=== PATIENT | female | born 1965 | race Caucasian/White ===

== ENCOUNTER → 2016-11-03 | Outpatient (CLI) | payer OTHER ==
--- NOTE | 2016-11-03 11:20 | DI ---
FACIAL SERIES, 11/03/2016 10:14 AM : Clinical History: Pain in the cheek region. Previous Exam: None at this facility. 5 routine upright views are obtained. The facial bones are normal. There is no facial soft tissue swelling or periorbital emphysema. No fac ial soft tissue mass is present. The paranasal sinuses are normal. There are no intracranial calcific ations. Reading: Normal facial series.
[2016-11-03 11:25] LABS: HEMOGLOBIN 13.9 g/dL (12.0-16.0); MEAN CORPUSCULAR HEMOGLOBIN 28.1 PG (27-31); MEAN CORPUSCULAR HGB CONC 32.3 g/dL (33-37); MEAN PLATELET VOLUME 9.5 FL (7.4-12.2); RED BLOOD COUNT 4.95 10^6/uL (4.20-5.40); WHITE BLOOD COUNT 7.15 10^3/uL (4.8-10.8)
[2016-11-03 12:06] LABS: HEMOGLOBIN A1C 6.11 % (4.2-6.0); MEAN BLOOD GLUCOSE (CALC) 117.463 mg/dL
[2016-11-03 12:11] LABS: ASPARTATE AMINO TRANSFERASE 20 IU/L (8-39); BILIRUBIN,TOTAL 0.4 mg/dL (0.3-1.2); BLOOD UREA NITROGEN 16 mg/dL (7-22); BUN/CREATININE RATIO 26.66 (6-20); CALCIUM 9.2 mg/dL (8.7-10.7); CHLORIDE 104 meq/L (98-112); CREATININE 0.6 mg/dL (0.50-1.20); EST GLOMERULAR FILTRATION > 60 (>60 ml/min/1.73m(2)); GLUCOSE 122 mg/dL (78-110); HDL CHOLESTEROL 46 mg/dL (40-150); POTASSIUM 4.4 meq/L (3.8-5.2); SODIUM 138 meq/L (135-145); TOTAL PROTEIN 6.6 g/dL (6.1-8.0)
[2016-11-03 12:20] LABS: TRIGLYCERIDES 408 mg/dL (44-200)
== END ==
LOC: MOB RAD 10:16
PROVIDERS: ATTEND Student in an Organized Health Care Education/Training Program
DX: R51 Headache (principal); W00.0XXA Fall on same level due to ice and snow, initial encounter; E78.1 Pure hyperglyceridemia; E66.09 Other obesity due to excess calories; E55.9 Vitamin D deficiency, unspecified; F48.2 Pseudobulbar affect; L30.4 Erythema intertrigo; R73.03 Prediabetes; M77.8 Other enthesopathies, not elsewhere classified; F33.2 Major depressive disorder, recurrent severe without psychotic features; Z13.1 Encounter for screening for diabetes mellitus; Z13.220 Encounter for screening for lipoid disorders
CPT/HCPCS: 36415; 70140; 80053; 80061; 82306; 83036; 84443; 85027; 99214; G0463

== ENCOUNTER → 2016-11-08 | Outpatient (CLI) | payer OTHER | LOC: MOB LAB 17:19 | PROVIDERS: ATTEND Physician Assistant | DX: R30.0 Dysuria (principal); R82.99 Other abnormal findings in urine | CPT/HCPCS: 87088 ==

== ENCOUNTER → 2017-04-25 | Outpatient (CLI) | payer OTHER ==
[2017-04-25 16:47] LABS: BLOOD UREA NITROGEN 11 mg/dL (7-22); BUN/CREATININE RATIO 15.71 (6-20); CALCIUM 9.1 mg/dL (8.7-10.7); EST GLOMERULAR FILTRATION > 60 (>60 ml/min/1.73m(2))
== END ==
LOC: MOB LAB 14:52
PROVIDERS: ATTEND Physician Assistant Medical
DX: I10 Essential (primary) hypertension (principal); R10.84 Generalized abdominal pain; N30.01 Acute cystitis with hematuria; R82.99 Other abnormal findings in urine
CPT/HCPCS: 36415; 80048; 81002; 87077; 87088; 87186 ×2; 99213; G0463

== ENCOUNTER → 2017-05-05 | Outpatient (CLI) | payer OTHER ==
[2017-05-05 16:13] LABS: BILIRUBIN,URINE NEGATIVE (NEG); CLARITY,URINE CLEAR (CLEAR); COLOR,URINE YELLOW; GLUCOSE, URINE (UA) NEGATIVE (NEG); NITRATE,URINE NEGATIVE (NEG); OCCULT BLOOD,URINE NEGATIVE (NEG); PH,URINE 5.5 (5.0-8.5); PROTEIN,URINE NEGATIVE (NEG); UROBILINOGEN,URINE 0.2 mg/dL (0.2)
[2017-05-05 16:25] LABS: RBC,URINE 0-3 /hpf; SQUAMOUS EPITHELIAL CELL,UR RARE; URINE SAMPLE TYPE CLEAN CATCH URINE
== END ==
LOC: MOB LAB 15:09
PROVIDERS: ATTEND Student in an Organized Health Care Education/Training Program
DX: R30.0 Dysuria (principal)
CPT/HCPCS: 81001

== ENCOUNTER → 2017-05-19 | Outpatient (CLI) | payer OTHER | LOC: MMPC 09:00 | PROVIDERS: ATTEND Student in an Organized Health Care Education/Training Program | DX: I10 Essential (primary) hypertension (principal); G35 Multiple sclerosis; R39.15 Urgency of urination | CPT/HCPCS: 99213; G0463 ==

== ENCOUNTER 2019-05-10 16:44 | Inpatient (IN) ==
[2019-05-10] MEDS ORDERED: HYDROmorphone 2 MG/1 ML IVP ONE (17:17)
[2019-05-10] MEDS ORDERED: ONDANSETRON 4 MG/2 ML VIAL IVP ONE ×2 (17:17→19:38)
[2019-05-10] MEDS ORDERED: Sodium Chloride 0.9% 1,000 ML PRIMARY IV ONE (17:17)
--- NOTE | 2019-05-10 17:22 | EKG ---
[address] [address] Measurements Intervals [place] Rate: 100 P: 47 VT: 148 QRS: 64 QRSD: 76 T: 57 QT: 365 QTc: 422 Interpretive Statements SINUS TACHYCARDIA ABNORMAL RHYTHM ECG Compared to ECG 10/02/2015 15:19:16 Sinus rhythm no longer present Electronically Signed On 05-10-19 19:30:21 MDT by Isaiah Joyner [email or web address]
[2019-05-10 17:32] LABS: VENOUS PH 7.35 (7.32-7.42)
[2019-05-10 17:34] LABS: BASOPHILS # (AUTO) 0.02 10*3/UL; BASOPHILS % (AUTO) 0.2 % (0-1); EOSINOPHILS # (AUTO) 0.16 10*3/UL; EOSINOPHILS % (AUTO) 1.5 % (0-8); Hematocrit [HCT] 38.3 % (37.0-47.0); Hemoglobin [HGB] 12.6 g/dL (12.0-16.0); LYMPHOCYTES # (AUTO) 1.32 10*3/uL; MEAN CORPUSCULAR HGB CONC 32.9 g/dL (33-37); MEAN CORPUSCULAR VOLUME 89.1 FL (81-99); MEAN PLATELET VOLUME 9.8 FL (7.4-12.2); MONOCYTES % (AUTO) 8.6 % (5-15); NEUTROPHILS # (AUTO) 7.98 10*3/UL; NEUTROPHILS % (AUTO) 76.7 % (50-80)
[2019-05-10 17:43] LABS: PLATELET MORPHOLOGY COMMENT NORMAL MORPHOLOGY (NORM); RBC MORPHOLOGY COMMENT NORMAL MORPHOLOGY (NORM); WBC MORPHOLOGY COMMENT NORMAL MORPHOLOGY (NORM)
[2019-05-10 17:48] LABS: BUN/CREATININE RATIO 17.77 (6-20); SERUM ALBUMIN 4.3 g/dL (3.5-4.8)
[2019-05-10 18:09] LABS: BILIRUBIN,URINE MODERATE (NEG); CLARITY,URINE Slightly Cloudy (CLEAR); COLOR,URINE YELLOW (Y); GLUCOSE, URINE (UA) NEGATIVE (NEG); OCCULT BLOOD,URINE NEGATIVE (NEG); PROTEIN,URINE TRACE mg/dl (NEG); UROBILINOGEN,URINE 0.2 EU/dL (0.2)
[2019-05-10 18:10] LABS: URINE SAMPLE TYPE CLEAN CATCH URINE
--- NOTE | 2019-05-10 18:55 | DI ---
History: ITS.REASON posterior back pain Physician Notes: use same bolus of contrast as used for ct abdomen.Tech Comments: Exam: CT CHEST Without Contrast Comparison: FINDINGS: Thoracic aorta appears within limits on noncontrast imaging. Proximal LAD and diagonal coronary artery calcification. No pericardial or pleural effusion. The central airways are patent without focal consolidation. Sequela of previous granulomatous disease with small calcified granulomas. No evidence of fracture or malalignment. Flowing anterior osteophyte formation. Suggestion of a few low-density foci within the thyroid measuring around 1.6 cm for example axial 4. May follow-up with nonemergent thyroid ultrasound as warranted. IMPRESSION: Thoracic aorta appears within limits on noncontrast imaging. Proximal LAD and diagonal coronary artery calcification. No pericardial or pleural effusion. Suggestion of a few low-density foci within the thyroid measuring around 1.6 cm for example axial 4. May follow-up with nonemergent thyroid ultrasound as warranted.
--- NOTE | 2019-05-10 19:04 | DI ---
History: ITS.REASON abdominal pain Physician Notes: use same bolus of contract as for CTA chest; get L.Tech Comments: Exam: CT ABDOMEN + PELVIS Without Contrast Comparison: 06/30/2018 FINDINGS: Bowel postsurgical changes and cholecystectomy again noted. No bowel dilation, free air or free fluid. The bladder is collapsed. No renal stones or hydronephrosis or evidence of ureteral or bladder stone. 1 cm exophytic left interpolar renal lesion may represent complex cyst or solid lesion and is not significantly changed. Other abdominal solid organs and abdominal aorta appear within limits on noncontrast imaging. No fracture or malalignment. IMPRESSION: No evidence of acute process on noncontrast imaging. Bowel postsurgical changes and cholecystectomy again noted. 1 cm exophytic left interpolar renal lesion may represent complex cyst or solid lesion and is not significantly changed.
[2019-05-10] MEDS ORDERED: DICYCLOMINE 20 MG TABLET PO PRN (20:54)
[2019-05-10] MEDS ORDERED: Magnesium Sulfate 2gm (Premix) 2 GM/50 ML BAG IV ONE (20:54)
[2019-05-10] MEDS ORDERED: VENLAFAXINE HCL XR 150 MG CAP PO SCH (20:54)
[2019-05-10] MEDS ORDERED: LIDOCAINE W/ SODIUM BICARB 0.5 ML SYR SUBD PRN (20:54)
[2019-05-10] MEDS ORDERED: ONDANSETRON 4 MG/2 ML VIAL IV PRN (20:54)
--- NOTE | 2019-05-10 20:54 | PDOC ---
HPI - History of Present Illness History of Present Illness: This very nice 53-year-old female who comes in with vague symptoms of generalized malaise and some mild diarrhea over the last 2 or 3 days she also has left upper quadrant pain. CT scans of the chest and abdomen revealed no acute abnormality. He was found to be hypotensive was treated with IV fluids and admitted for further treatment also she was found to have some renal insufficiency as well. She just stopped her antiseizure medication which was managed by Dr. Wakefield since she has not had a seizure in 5 years and that was of Vimpat and Neurontin she stopped this 3 weeks ago she was also on multiple high blood pressure meds per shows a note which wants Past Medical History Medical History: 1. MS relapsing remitting since was on Gilynia. This was discontinued in April as she had embolism she said to the left eye and apparently this is one of the side effects. 2. Epilepsy. 3. Depression and anxiety. 4. Bladder incontinence. 5. Hypertension. 6. Prolonged QT interval. This seems to be resolved. Surgical History: 1. History of gastric bypass. 2. Hysterectomy. 3. Appendectomy. 4. History of gallbladder surgery. 5. Colostomy with subsequent reversal for bowel injury during hysterectomy. 6. Incisional herniorrhaphy Family History: Reviewed an Not Pertinent Pertinent Family History: No history of depression or premature coronary artery disease. Past Social History: Does not smoke or drink. Tobacco Use: Never Smoker In the Past 12 Months, Have Used or Abuse Any of the Following Substance: None Medication / Allergies Home Medications: Home Medications Medication Instructions Recorded Confirmed Clonazepam [Klonopin] 2 mg PO DAILY 06/27/15 05/10/19 venlafaxine ER 150 mg 150 mg PO ONCE 11/16/17 05/10/19 capsule,extended release 24 hr baclofen 10 mg tablet 20 mg PO QHS tab 02/08/18 05/10/19 cetirizine 10 mg tablet 10 mg PO QDAY 09/21/18 05/10/19 multivitamin-ferrous 1 tab PO QAM 09/21/18 05/10/19 fumarate-folic acid 18 mg-400 mcg tablet vitamin B complex tablet 1 tab PO QDAY 09/21/18 05/10/19 lurasidone 40 mg tablet 40 mg PO QDAY #30 tab 09/28/18 05/10/19 cholecalciferol (vitamin D3) 1,000 1,000 unit PO QDAY 12/21/18 05/10/19 unit capsule lactobacillus combination no.9 4 4,000 mmu cells PO QDAY 12/21/18 05/10/19 billion cell capsule cyclobenzaprine 10 mg tablet 10 mg PO TID PRN #30 tab 02/01/19 05/10/19 pantoprazole 20 mg tablet,delayed 20 mg PO BID #180 tab 02/26/19 05/10/19 release metformin ER 1,000 mg 1,000 mg PO BID #180 tab 02/28/19 05/10/19 tablet,extended release 24hr blood sugar diagnostic strips See Dose Instructions .ROUTE 03/26/19 04/17/19 .MEDSUPPLY #25 ea mirabegron ER 50 mg 50 mg PO QDAY 04/17/19 05/10/19 tablet,extended release 24 hr tamsulosin 0.4 mg capsule 0.4 mg PO QDAY 04/17/19 05/10/19 Dicyclomine HCl [Bentyl] 1 tab PO PRN PRN 05/10/19 05/10/19 chlorthalidone 25 mg tablet 12.5 mg PO QDAY #30 tab 05/10/19 05/10/19 Allergies/Adverse Reactions: Allergies Allergy/AdvReac Type Severity Reaction Status Date / Time meperidine HCl [From Demerol] Allergy Mild NOT Verified 05/10/19 17:15 APPLICABLE morphine [Morphine] Allergy Mild ITCHING Verified 05/10/19 17:15 aspertame AdvReac DIZZINESS Uncoded 05/10/19 17:15 Review of Systems - Review of Systems All Systems: Reviewed & No Additional Complaints Except as Stated - Respiratory Respiratory: DENIES: Negative System Review, Cough, Sputum, Dyspnea At Rest, Dy spnea with Exertion, Pleuritic Pain, Hemoptysis, Wheezing, Other, See HPI - Cardiovascular Cardiovascular: DENIES: Negative System Review, Chest Pain, Edema, Syncope, Palpitations, Orthopnea, Paroxysmal Nocturnal Dyspnea, Other, See HPI - Gastrointestinal Gastrointestinal / Abdominal: REPORTS: Nausea, Diarrhea. DENIES: Bloody Stool Exam - Vitals Vital Signs: Vital Signs Temperature 96.9 F Temperature Source Temporal Artery Scan Pulse Rate [Pulse Oximeter] 102 Pulse Rate [Standing] 112 Pulse Rate [Sitting] 104 Pulse Rate [Lying] 102 Respiratory Rate 20 Blood Pressure [Standing] 88/57 Blood Pressure [Sitting] 97/59 Blood Pressure [Lying] 85/56 Blood Pressure [Left Arm] 84/54 Pulse Ox 93 Oxygen Delivery Method Room Air Height 5 ft 4 in Weight 200 lb - General General Appearance: No Acute Distress, Cooperative - Head Head Exam: Normal Inspection, Normocephalic, Atraumatic - Eye Eye Exam: POSITIVE: Normal Appearance, PERRL, EOMI, No Scleral Icterus - ENT ENT Exam: POSITIVE: Normal Exam, Normal External Ear Exam, Normal Oropharynx, TM's Normal Bilaterally, Mucous Membranes Moist - Respiratory Respiratory Exam: POSITIVE: Clear to Auscultation - Bilaterally, Breathing Non Labored, Normal To Percussion, Normal to Percussion and Palpation - Cardiovascular Cardiovascular Exam: POSITIVE: RRR, No Murmur, No Clicks, No Gallops, No Rubs, PMI Non-Displaced - GI/Abdominal Additional GI/Abdominal Exam Details: Mild left lower car to abdominal pain no guarding or rebound - Extremities Extremities Exam: POSITIVE: No Clubbing Present, No Edema Present Results - Labs CBC and BMP: 05/10/19 17:20 05/10/19 17:20 Assessment and Plan - Patient Problems (1) DUSTIN (acute kidney injury) Current Visit: Yes Status: Acute Code(s): N17.9 - Acute kidney failure, unspecified (2) Hypertension Current Visit: No Status: Chronic Code(s): I10 - Essential (primary) hypert ension - Assessment / Plan Additional Assessment/Plan Details: #1 hypotension this could be from dehydration or viral gastroenteritis and having the diuretics and hypertensive medication on board this could again with the hypotension and also acute kidney injury we'll admit the patient check ultrasound of her kidneys make sure there is no blockage hold medication that can insult the kidneys and hydrate the patient would like to bring her at 125 an hour. #2 hypomagnesemia replace with 2 g IV we'll recheck and she might need more. Repeat labs in a.m.
[2019-05-10] MEDS ORDERED: ClonazePAM Tab 1 MG TABLET PO SCH ×2 (21:00)
[2019-05-10] MEDS ORDERED: Lactated Ringers 1,000 ML PRIMARY IV SCH (21:00)
[2019-05-10] MEDS ORDERED: PANTOPRAZOLE 20 MG TABLET.DR PO SCH (21:00)
[2019-05-10] MEDS: HEPARIN 5000 UNIT/1 ML SUBCUT SCH (21:21)
[2019-05-10] MEDS: Lactated Ringers 1,000 ML PRIMARY IV SCH (21:22)
[2019-05-10] MEDS: HYDROmorphone 2 MG/1 ML IV PRN (21:28)
[2019-05-10 21:49] VITALS: TEMP 97.7
[2019-05-10] MEDS ORDERED: methylPREDNISolone 125 MG/2 ML VIAL IVP ONE (23:08)
[2019-05-10] MEDS ORDERED: diphenhydrAMINE 50 MG/1 ML VIAL IVP ONE (23:08)
--- NOTE | 2019-05-11 00:46 | PDOC ---
General Adult HPI - General Chief Complaint: Abdomen Pain Stated Complaint: BACK SPASMS, ABD PAIN, LOW BP Date Seen by Provider: 05/10/19 Time Seen by Provider: 17:05 Source: POSITIVE: Patient Exam Limitations: POSITIVE: No limitations Nurse's Notes Reviewed & Considered: Yes - History of Present Illness Initial Comment: The patient is a 53-year-old female. Patient states that for the past 2-3 days she has "just not felt good ". She states she's felt "weak and sweaty". She states she had her blood pressure taken at her eye physician's office today and was told that her "blood pressure was low. Patient complains of some vague abdominal and back discomfort; patient states that she has a history of "Augustine spasms "for which she is being treated in physical therapy. Patient has a history of hypertension for which she takes benazepril 40 mg twice daily and chlorthalidone, 25 mg daily. History of diabetes mellitus for which she takes metformin 1000 mg twice daily. She also takes Klonopin 2 mg twice daily and baclofen 20 mg daily. She occasionally takes Flexeril 10 mg as necessary. No fevers or chills. No head pain. No vomiting, diarrhea, melena, hematochezia, hematemesis, dysuria or hematuria. Patient had a gastric bypass in 2005 and lost 40 pounds. She's had a cholecystectomy, appendectomy and hysterectomy. Patient states that she has felt "dizzy and lightheaded. Have you received a tetanus shot in the past 10 years?: Unknown Body Location Affected: REPORTS: Abdomen, Back, Other (As above) Timing: REPORTS: Gradual, Getting Worse Duration: >24 hours Severity: Moderate Quality: REPORTS: "Pain" (Abdomen and posterior thorax) Context: REPORTS: None Modifying Factors: improves with: Upright Position (Dizziness and lightheadedness somewhat exacerbated by standing) Similar Symptoms Previously: Yes (history of chronic back and abdominal "cramping") Recent Care Received: REPORTS: Recently Seen (Seen by her director of maternity services earlier today), Treated by MD (As above) Any Prior Injuries Related to Current Complaint?: No - Patient Home Medications Home Medications: Home Medications Clonazepam [Klonopin] 2 mg PO DAILY 06/27/15 venlafaxine ER 150 mg capsule,extended release 24 hr 150 mg PO ONCE 11/16/17 baclofen 10 mg tablet 20 mg PO QHS tab 02/08/18 cetirizine 10 mg tablet 10 mg PO QDAY 09/21/18 multivitamin-ferrous fumarate-folic acid 18 mg-400 mcg tablet 1 tab PO QAM 09/21/18 vitamin B complex tablet 1 tab PO QDAY 09/21/18 lurasidone 40 mg tablet 40 mg PO QDAY #30 tab 09/28/18 cholecalciferol (vitamin D3) 1,000 unit capsule 1,000 unit PO QDAY 12/21/18 lactobacillus combination no.9 4 billion cell capsule 4,000 mmu cells PO QDAY 12/21/18 cyclobenzaprine 10 mg tablet 10 mg PO TID PRN #30 tab 02/01/19 pantoprazole 20 mg tablet,delayed release 20 mg PO BID #180 tab 02/26/19 metformin ER 1,000 mg tablet,extended release 24hr 1,000 mg PO BID #180 tab 02/28/19 blood sugar diagnostic strips See Dose Instructions .ROUTE .MEDSUPPLY #25 ea 03/26/19 mirabegron ER 50 mg tablet,extended release 24 hr 50 mg PO QDAY 04/17/19 tamsulosin 0.4 mg capsule 0.4 mg PO QDAY 04/17/19 Dicyclomine HCl [Bentyl] 1 tab PO PRN PRN 05/10/19 chlorthalidone 25 mg tablet 12.5 mg PO QDAY #30 tab 05/10/19 - Patient Allergies Allergies/Adverse Reactions: Allergies Allergy/AdvReac Type Severity Reaction Status Date / Time meperidine HCl [From Demerol] Allergy Mild NOT Verified 05/10/19 17:15 APPLICABLE morphine [Morphine] Allergy Mild ITCHING Verified 05/10/19 17:15 aspertame AdvReac DIZZINESS Uncoded 05/10/19 17:15 Past Medical History - heen HEENT History: Other (please comment) Additional HEENT History: Left BLURRED VISION L EYE SECONDARY TO MS macular edema from MS meds. Cardiovascular History: Hypertension, Hyperlipidemia Additional Cardiovasular History: PROLONGED QT SYNDROME Respiratory History: Pulmonary Embolism, Other (please comment) Additional Respiratory History: RESPIRATORY FAILURE 06/27/13 d/t fentanyl patch and pain meds Gastrointestinal History: GERD, Irritable Bowel Syndrome, Other (please comment) Additional Gastrointestinal History: GASTRIC BYPASS, COLOSTOMY 07/04, COLOSTOMY REVERSAL 11/05 Genitourinary History: Denies History Endocrine History: Denies History Musculoskeletal History: Other (please comment) Prosthesis or Implant: No Additional Musculoskeletal History: RESTLESS LEG SYNDROME Neurological History: Seizures, Migraines, Multiple Sclerosis, Other (please comment) Additional Neurological History: Epilepsy Blood Disorders: Denies History Psychiatric History: Depression, Anxiety Disorders, Other (please comment) Additional Psychiatric History: PSEUDOBULBAR AFFECT-taken off meds for this History of Sexually Transmitted Diseases: No Female Reproductive History: Denies History Obstetrical History: Denies History Cancer History: Denies History In Past Year Been Physically Harmed or Verbally Threatened: No History of MDRO: No History of Other Communicable Diseases: No Tobacco Use: Never Smoker Alcohol Use: Other In the Past 12 Months, Have Used or Abuse Any Substance: None Previous Surgical History: Yes Type / Date of Surgery: REGLA, GASTRIC BYPASS, FULL HYSTERECTOMY,COLOSTOMY, COLOSTOMY REVERSAL, COLOVAGINAL FISTULA REPAIR, APPY/2 separate hernia Anesthesia Reactions: No Malignant Hyperthermia: No Significant Family History: Diabetes, Hypertension Past Medical History Reviewed: Reviewed - No Changes ROS - Limitations ROS Limitations: No Limitations Constitution: REPORTS: Weakness Cardiovascular: REPORTS: Denies Cardiac Symptoms Respiratory: REPORTS: Denies Resp Symptoms Neurological: REPORTS: Dizziness, Weakness Gastrointestinal: REPORTS: Abdominal Pain Endocrine: REPORTS: Fatigue Musculoskeletal: REPORTS: Back Pain (Posterior thoracic pain and "cramping") Genitourinary: REPORTS: Denies Symptoms Eyes: REPORTS: Denies Symptoms ENT: REPORTS: Denies Symptoms Skin: REPORTS: Denies Skin Symptoms Lympathic: REPORTS: Denies Lympathic Symptoms Immunologic: POSITIVE: Denies Symptoms Psychiatric: POSITIVE: Denies Psych Symptoms General Adult Exam - General Appearance General Appearance: POSITIVE: Alert, Cooperative, No Acute Distress, No Evidence of Trauma - HEENT HEENT: POSITIVE: Head Inspection Nml, Eyes Inspection Nml, Ears Inspection Nml, Nose Inspection Nml, Oral/Dental Inspect. Nml, Pharynx Inspect. Nml, PERRL, EOMI - Pupils Pupil Size: 3 mm: Bilateral (PERRLA) - Neck Neck: POSITIVE: Normal Inspection, Thyroid Normal - Respiratory Respiratory: POSITIVE: No Respiratory Distress, Breath Sounds Normal, Chest Non- Tender - Cardiovascular Cardiovascular: POSITIVE: Regular Rate & Rhythm, No Murmur, No Gallop, PMI Normal Peripheral Pulses: Radial (R): 2+, Radial (L): 2+ - Abdomen Abdomen: Soft: (All Quadrants), Normal Bowel Sounds: (All Quadrants), No Splenomegaly: (All Quadrants), No Hepatomegaly: (All Quadrants), No Guarding: (All Quadrants), No Rebound: (All Quadrants), No Palpable Pulse: (All Quadrants), No Palpabale Mass: (All Quadrants), No Distention: (All Quadrants), No Rigidity: (All Quadrants), Tenderness Noted: (RUQ), (LUQ), (RLQ), (LLQ) Additional Abdominal Details: Abdominal examination shows bowel sounds to be active. Patient does express some mild discomfort on direct palpation over the paraumbilical area, without masses, organomegaly or rebound. 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 General Adult Progress - Results Reviewed by me Xrays/CTs/US Reviewed by me: Yes Discussed with Radiologist: Yes Radiology Findings: CT scan abdomen, pelvis and chest without contrast read by radiologist as normal. Lab Results Reviewed by Me: Yes (BUN 32, creatinine 1.8, lactic acid 3.1, CRP 2.6) Lab Results:: Laboratory Results 05/10/19 05/10/19 05/10/19 17:17 17:20 17:20 WBC 10.41 RBC 4.30 Hgb 12.6 Hct 38.3 MCV 89.1 MCH 29.3 MCHC 32.9 L RDW Std Deviation 45.7 RDW Coeff of Kvng 14.3 Plt Count 368 H MPV 9.8 Immature Gran % (Auto) 0.3 Neut % (Auto) 76.7 Lymph % (Auto) 12.7 [place] % (Auto) 8.6 Eos % (Auto) 1.5 Baso % (Auto) 0.2 Immature Gran # (Auto) 0.03 Neut # (Auto) 7.98 Lymph # (Auto) 1.32 [place] # (Auto) 0.90 H Eos # (Auto) 0.16 Baso # (Auto) 0.02 WBC Morphology Comment Normal morphology Plt Morphology Comment Normal morphology RBC Morph Comment Normal morphology D-Dimer VBG pH VBG pCO2 VBG HCO3 VBG Base Excess Sodium 142 Potassium 4.1 Chloride 107 Carbon Dioxide 19 L Anion Gap 16 BUN 32 H Creatinine 1.8 H Estimated GFR 29 BUN/Creatinine Ratio 17.77 Glucose 103 Calculated Osmolality 300.0 H Lactic Acid Calcium 9.1 Magnesium 1.3 L Total Bilirubin 0.2 L AST 33 ALT 39 Alkaline Phosphatase 87 Total Creatine Kinase 31 Troponin I C-Reactive Protein 2.6 H NT-Pro-B Natriuret Pep 154 H Total Protein 7.2 Albumin 4.3 Globulin 2.9 Albumin/Globulin Ratio 1.40 TSH Ur Collection Type Clean catch urine Urine Color Yellow Urine Clarity Slightly cloudy Urine pH 5.0 Ur Specific [place] 1.025 Urine Protein Trace Urine Glucose (UA) Negative Urine Ketones 15 Urine Occult Blood Negative Urine Nitrate Negative Urine Bilirubin Moderate Urine Urobilinogen 0.2 Ur Leukocyte Esterase Negative Ur Culture Indicated? Culture not set 05/10/19 05/10/19 05/10/19 17:20 17:20 17:20 WBC RBC Hgb Hct MCV MCH MCHC RDW Std Deviation RDW Coeff of Kvng Plt Count MPV Immature Gran % (Auto) Neut % (Auto) Lymph % (Auto) [place] % (Auto) Eos % (Auto) Baso % (Auto) Immature Gran # (Auto) Neut # (Auto) Lymph # (Auto) [place] # (Auto) Eos # (Auto) Baso # (Auto) WBC Morphology Comment Plt Morphology Comment RBC Morph Comment D-Dimer 383 VBG pH VBG pCO2 VBG HCO3 VBG Base Excess Sodium Potassium Chloride Carbon Dioxide Anion Gap BUN Creatinine Estimated GFR BUN/Creatinine Ratio Glucose Calculated Osmolality Lactic Acid 3.1 H Calcium Magnesium Total Bilirubin AST ALT Alkaline Phosphatase Total Creatine Kinase Troponin I < 0.012 C-Reactive Protein NT-Pro-B Natriuret Pep Total Protein Albumin Globulin Albumin/Globulin Ratio TSH Ur Collection Type Urine Color Urine Clarity Urine pH Ur Specific [place] Urine Protein Urine Glucose (UA) Urine Ketones Urine Occult Blood Urine Nitrate Urine Bilirubin Urine Urobilinogen Ur Leukocyte Esterase Ur Culture Indicated? 05/10/19 05/10/19 17:20 17:28 WBC RBC Hgb Hct MCV MCH MCHC RDW Std Deviation RDW Coeff of Kvng Plt Count MPV Immature Gran % (Auto) Neut % (Auto) Lymph % (Auto) [place] % (Auto) Eos % (Auto) Baso % (Auto) Immature Gran # (Auto) Neut # (Auto) Lymph # (Auto) [place] # (Auto) Eos # (Auto) Baso # (Auto) WBC Morphology Comment Plt Morphology Comment RBC Morph Comment D-Dimer VBG pH 7.35 VBG pCO2 33 L VBG HCO3 18 L VBG Base Excess -7 L Sodium Potassium Chloride Carbon Dioxide Anion Gap BUN Creatinine Estimated GFR BUN/Creatinine Ratio Glucose Calculated Osmolality Lactic Acid Calcium Magnesium Total Bilirubin AST ALT Alkaline Phosphatase Total Creatine Kinase Troponin I C-Reactive Protein NT-Pro-B Natriuret Pep Total Protein Albumin Globulin Albumin/Globulin Ratio TSH 1.36 Ur Collection Type Urine Color Urine Clarity Urine pH Ur Specific [place] Urine Protein Urine Glucose (UA) Urine Ketones Urine Occult Blood Urine Nitrate Urine Bilirubin Urine Urobilinogen Ur Leukocyte Esterase Ur Culture Indicated? CBC and BMP: 05/10/19 17:20 05/10/19 17:20 EKG Interpreted/Reviewed By Me:: Yes (sinus tachycardia of 100/m) EKG Interpretation:: POSITIVE: Normal Sinus Rhythm, Normal Intervals, Normal [place], Normal QRS, Normal ST/T. NEGATIVE: Normal Rate (Sinus tachycardia of 100/m) - Patient's Progress Pain Medication Addressed: POSITIVE: Yes (Patient given Dilaudid, 1 mg IV) School/Work Release Addressed: POSITIVE: Not Applicable Re-Examine Time: 19:00 Re-Examine Comment: Orthostatic blood pressure shortly after arrival was 85/56 supine with a pulse of 102 and upright was 88/52 with a pulse of 112. Patient stated that she felt "dizzy and lightheaded "was standing. Patient's BUN was 32 and creatinine is 1.8; on 12/25/2018 BUN was 19 and creatinine was 0.9. Patient was hydrated with a liter of normal saline and after this her blood pressure was 117/78 and her heart rate 99. Patient was advised of the noncontrast CT results of her abdomen and pelvis and chest. Patient advised th at I believe her low blood pressures most likely due to her antihypertensives, chlorthalidone and benazepril, which are likely also causing a increase in her renal functions. Case was discussed with hospitalist quality control head, Dr. Peraza, who has admitted the patient for further evaluation and treatment. Status: POSITIVE: Improved, Re-Examined Antibiotics Given: No - Consult Consult (If Yes, Name of Consulting MD & Time Called): Yes (, hospitalist, 1919 ) Consulting MD will see pt:: POSITIVE: [facility] ED, [facility] Admit Counseled: POSITIVE: Patient, RE: Lab Results, RE: Radiology Results, RE: DX, RE: Need for F/U Patient Care Time - Estimated PCT Patient Care Time (In Minutes): 60 Vital Signs - Recent Vital Signs Vital Signs: Vital Signs (Last 8 hours) Temp Pulse Pulse Pulse Pulse Resp BP 05/10/19 17:47 102 H 104 H 112 H 05/10/19 16:44 96.9 F 102 H 20 84/54 BP BP BP Pulse Ox 05/10/19 17:47 85/56 97/59 88/57 05/10/19 16:44 93 - VS Reviewed Vital Signs Reviewed: Yes Discharge Clinical Impression: Abdominal pain, Hypotension, Renal failure, Multiple sclerosis Back pain Qualifiers: Back pain location: thoracic back pain Chronicity: unspecified Back pain laterality: right Qualified Code(s): M54.6 - Pain in thoracic spine Discharge Disposition: Admit to Inpatient Condition: Good Patient Problem(s) Reviewed: Yes Date Decision to Admit to Inpatient: 05/10/19 Time Decision to Admit to Inpatient: 19:00
--- NOTE | 2019-05-11 00:54 | DI ---
EXAM: US Retroperitoneal Limited, Renal CLINICAL HISTORY: ITS.REASON acute renal failure Physician Notes: Tech Comments: TECHNIQUE: Real-time ultrasound of the retroperitoneum (limited) with image documentation. COMPARISON: CT 05/10/19 FINDINGS: Right kidney: The right kidney is normal in size. No hydronephrosis or nephrolithiasis no renal masses. Left kidney: The left kidney is normal in size. No hydronephrosis or nephrolithiasis. Small exophytic isoechoic to hypoechoic lesion in the upper left kidney measuring 1 cm without internal vascularity is nonspecific but unchanged when compared to 06/30/18. Findings probably represent a hemorrhagic or proteinaceous cyst. Bladder: Normal bladder. No intraluminal mass or bladder wall thickening. Both ureteral jets are identified. IMPRESSION: Small exophytic isoechoic to hypoechoic lesion in the upper left kidney measuring 1 cm without internal vascularity is nonspecific but unchanged when compared to 06/30/18. Findings probably represent a hemorrhagic or proteinaceous cyst. However, consider follow-up ultrasound in 6 months to demonstrate interval stability.
[2019-05-11] MEDS: HYDROmorphone 2 MG/1 ML IV PRN (04:05)
[2019-05-11 04:39] LABS: BASOPHILS # (AUTO) 0.01 10*3/UL; BASOPHILS % (AUTO) 0.1 % (0-1); EOSINOPHILS # (AUTO) 0.02 10*3/UL; EOSINOPHILS % (AUTO) 0.2 % (0-8); Hematocrit [HCT] 37.5 % (37.0-47.0); Hemoglobin [HGB] 12.1 g/dL (12.0-16.0); LYMPHOCYTES # (AUTO) 0.69 10*3/uL; MEAN CORPUSCULAR HGB CONC 32.3 g/dL (33-37); MEAN CORPUSCULAR VOLUME 90.1 FL (81-99); MEAN PLATELET VOLUME 9.9 FL (7.4-12.2); MONOCYTES # (AUTO) 0.09 10*3/UL (0.3-0.8); NEUTROPHILS # (AUTO) 7.88 10*3/UL; NEUTROPHILS % (AUTO) 90.5 % (50-80); RED BLOOD COUNT 4.16 10^6/uL (4.20-5.40)
[2019-05-11 04:49] LABS: PLATELET MORPHOLOGY COMMENT NORMAL MORPHOLOGY (NORM); RBC MORPHOLOGY COMMENT NORMAL MORPHOLOGY (NORM); WBC MORPHOLOGY COMMENT NORMAL MORPHOLOGY (NORM)
[2019-05-11 04:53] LABS: BUN/CREATININE RATIO 26.66 (6-20)
[2019-05-11] MEDS: HEPARIN 5000 UNIT/1 ML SUBCUT SCH (05:30)
[2019-05-11] MEDS: Lactated Ringers 1,000 ML PRIMARY IV SCH (05:30)
[2019-05-11] MEDS ORDERED: PANTOPRAZOLE IV 40 MG VIAL IVP SCH (07:00)
[2019-05-11 07:05] VITALS: BP 129/91; RESP 17; O2SAT 94
[2019-05-11] MEDS ORDERED: VENLAFAXINE HCL XR 150 MG CAP PO SCH ×2 (07:08→21:00)
[2019-05-11] MEDS ORDERED: DICYCLOMINE 20 MG TABLET PO PRN (07:08)
[2019-05-11] MEDS ORDERED: LIDOCAINE W/ SODIUM BICARB 0.5 ML SYR SUBD PRN (07:08)
[2019-05-11] MEDS ORDERED: ONDANSETRON 4 MG/2 ML VIAL IV PRN (07:08)
[2019-05-11] MEDS ORDERED: Lactated Ringers 1,000 ML PRIMARY IV SCH (07:08)
[2019-05-11] MEDS ORDERED: ClonazePAM Tab 1 MG TABLET PO SCH ×2 (07:08→21:00)
[2019-05-11] MEDS ORDERED: HYDROmorphone 2 MG/1 ML IV PRN (07:08)
[2019-05-11] MEDS ORDERED: TAMSULOSIN 0.4 MG CAPSULE PO SCH ×2 (09:00)
[2019-05-11] MEDS ORDERED: CHOLECALCIFEROL 1000 IU TABLET PO SCH ×2 (09:00)
[2019-05-11] MEDS ORDERED: LORATADINE 10 MG TABLET PO SCH ×2 (09:00)
[2019-05-11] MEDS ORDERED: CYCLOBENZAPRINE 10 MG TABLET PO PRN (09:29)
--- NOTE | 2019-05-11 10:26 | DCSUMMARY ---
Hospitalization Summary Admit Date: 05/10/2019 Discharge Date: 05/11/19 Primary Diagnosis:: hypotension Secondary Diagnosis:: Renal failure, hypomagnesemia Hospital Course: Final Discharge Diagnosis: Current Visit Problems Problem Status Onset Code DUSTIN (acute kidney injury) Acute N17.9 Abdominal pain Acute R10.9 Hypotension Acute I95.9 Renal failure Acute N19 Multiple sclerosis Chronic G35 Back pain Chronic M54.9 Diagnostic Data, Laboratory Data, and Procedures of Signifigance: Laboratory Results 05/10/19 05/10/19 05/10/19 17:17 17:20 17:20 WBC 10.41 RBC 4.30 Hgb 12.6 Hct 38.3 MCV 89.1 MCH 29.3 MCHC 32.9 L RDW Std Deviation 45.7 RDW Coeff of Kvng 14.3 Plt Count 368 H MPV 9.8 Immature Gran % (Auto) 0.3 Neut % (Auto) 76.7 Lymph % (Auto) 12.7 [place] % (Auto) 8.6 Eos % (Auto) 1.5 Baso % (Auto) 0.2 Immature Gran # (Auto) 0.03 Neut # (Auto) 7.98 Lymph # (Auto) 1.32 [place] # (Auto) 0.90 H Eos # (Auto) 0.16 Baso # (Auto) 0.02 WBC Morphology Comment Normal morphology Plt Morphology Comment Normal morphology RBC Morph Comment Normal morphology D-Dimer VBG pH VBG pCO2 VBG HCO3 VBG Base Excess Sodium 142 Potassium 4.1 Chloride 107 Carbon Dioxide 19 L Anion Gap 16 BUN 32 H Creatinine 1.8 H Estimated GFR 29 BUN/Creatinine Ratio 17.77 Glucose 103 Calculated Osmolality 300.0 H Lactic Acid Calcium 9.1 Magnesium 1.3 L Total Bilirubin 0.2 L AST 33 ALT 39 Alkaline Phosphatase 87 Total Creatine Kinase 31 Troponin I C-Reactive Protein 2.6 H NT-Pro-B Natriuret Pep 154 H Total Protein 7.2 Albumin 4.3 Globulin 2.9 Albumin/Globulin Ratio 1.40 TSH Ur Collection Type Clean catch urine Urine Color Yellow Urine Clarity Slightly cloudy Urine pH 5.0 Ur Specific [place] 1.025 Urine Protein Trace Urine Glucose (UA) Negative Urine Ketones 15 Urine Occult Blood Negative Urine Nitrate Negative Urine Bilirubin Moderate Urine Urobilinogen 0.2 Ur Leukocyte Esterase Negative Ur Culture Indicated? Culture not set 05/10/19 05/10/1919 17:20 17:20 17:20 WBC RBC Hgb Hct MCV MCH MCHC RDW Std Deviation RDW Coeff of Kvng Plt Count MPV Immature Gran % (Auto) Neut % (Auto) Lymph % (Auto) [place] % (Auto) Eos % (Auto) Baso % (Auto) Immature Gran # (Auto) Neut # (Auto) Lymph # (Auto) [place] # (Auto) Eos # (Auto) Baso # (Auto) WBC Morphology Comment Plt Morphology Comment RBC Morph Comment D-Dimer 383 VBG pH VBG pCO2 VBG HCO3 VBG Base Excess Sodium Potassium Chloride Carbon Dioxide Anion Gap BUN Creatinine Estimated GFR BUN/Creatinine Ratio Glucose Calculated Osmolality Lactic Acid 3.1 H Calcium Magnesium Total Bilirubin AST ALT Alkaline Phosphatase Total Creatine Kinase Troponin I < 0.012 C-Reactive Protein NT-Pro-B Natriuret Pep Total Protein Albumin Globulin Albumin/Globulin Ratio TSH Ur Collection Type Urine Color Urine Clarity Urine pH Ur Specific [place] Urine Protein Urine Glucose (UA) Urine Ketones Urine Occult Blood Urine Nitrate Urine Bilirubin Urine Urobilinogen Ur Leukocyte Esterase Ur Culture Indicated? 05/10/19 05/10/19 05/10/19 17:20 17:28 21:17 WBC RBC Hgb Hct MCV MCH MCHC RDW Std Deviation RDW Coeff of Kvng Plt Count MPV Immature Gran % (Auto) Neut % (Auto) Lymph % (Auto) [place] % (Auto) Eos % (Auto) Baso % (Auto) Immature Gran # (Auto) Neut # (Auto) Lymph # (Auto) [place] # (Auto) Eos # (Auto) Baso # (Auto) WBC Morphology Comment Plt Morphology Comment RBC Morph Comment D-Dimer VBG pH 7.35 VBG pCO2 33 L VBG HCO3 18 L VBG Base Excess -7 L Sodium Potassium Chloride Carbon Dioxide Anion Gap BUN Creatinine Estimated GFR BUN/Creatinine Ratio Glucose Calculated Osmolality Lactic Acid Calcium Magnesium Total Bilirubin AST ALT Alkaline Phosphatase Total Creatine Kinase Troponin I < 0.012 C-Reactive Protein NT-Pro-B Natriuret Pep Total Protein Albumin Globulin Albumin/Globulin Ratio TSH 1.36 Ur Collection Type Urine Color Urine Clarity Urine pH Ur Specific [place] Urine Protein Urine Glucose (UA) Urine Ketones Urine Occult Blood Urine Nitrate Urine Bilirubin Urine Urobilinogen Ur Leukocyte Esterase Ur Culture Indicated? 05/11/19 05/11/19 05/11/19 04:14 04:14 04:14 WBC 8.72 RBC 4.16 L Hgb 12.1 Hct 37.5 MCV 90.1 MCH 29.1 MCHC 32.3 L RDW Std Deviation 46.1 RDW Coeff of Kvng 14.4 Plt Count 305 MPV 9.9 Immature Gran % (Auto) 0.3 Neut % (Auto) 90.5 H Lymph % (Auto) 7.9 L [place] % (Auto) 1.0 L Eos % (Auto) 0.2 Baso % (Auto) 0.1 Immature Gran # (Auto) 0.03 Neut # (Auto) 7.88 Lymph # (Auto) 0.69 [place] # (Auto) 0.09 L Eos # (Auto) 0.02 Baso # (Auto) 0.01 WBC Morphology Comment Normal morphology Plt Morphology Comment Normal morphology RBC Morph Comment Normal morphology D-Dimer VBG pH VBG pCO2 VBG HCO3 VBG Base Excess Sodium 138 Potassium 4.6 Chloride 107 Carbon Dioxide 19 L Anion Gap 12 BUN 32 H Creatinine 1.2 Estimated GFR 47 BUN/Creatinine Ratio 26.66 H Glucose 238 H Calculated Osmolality 300.0 H Lactic Acid 2.6 H Calcium 8.7 Magnesium Total Bilirubin 0.3 AST 42 H ALT 38 Alkaline Phosphatase 96 Total Creatine Kinase Troponin I C-Reactive Protein NT-Pro-B Natriuret Pep Total Protein 6.8 Albumin 4.0 Globulin 2.8 Albumin/Globulin Ratio 1.40 TSH Ur Collection Type Urine Color Urine Clarity Urine pH Ur Specific [place] Urine Protein Urine Glucose (UA) Urine Ketones Urine Occult Blood Urine Nitrate Urine Bilirubin Urine Urobilinogen Ur Leukocyte Esterase Ur Culture Indicated? 05/11/19 05:00 WBC RBC Hgb Hct MCV MCH MCHC RDW Std Deviation RDW Coeff of Kvng Plt Count MPV Immature Gran % (Auto) Neut % (Auto) Lymph % (Auto) [place] % (Auto) Eos % (Auto) Baso % (Auto) Immature Gran # (Auto) Neut # (Auto) Lymph # (Auto) [place] # (Auto) Eos # (Auto) Baso # (Auto) WBC Morphology Comment Plt Morphology Comment RBC Morph Comment D-Dimer VBG pH VBG pCO2 VBG HCO3 VBG Base Excess Sodium Potassium Chloride Carbon Dioxide Anion Gap BUN Creatinine Estimated GFR BUN/Creatinine Ratio Glucose Calculated Osmolality Lactic Acid Calcium Magnesium 2.2 Total Bilirubin AST ALT Alkaline Phosphatase Total Creatine Kinase Troponin I C-Reactive Protein NT-Pro-B Natriuret Pep Total Protein Albumin Globulin Albumin/Globulin Ratio TSH Ur Collection Type Urine Color Urine Clarity Urine pH Ur Specific [place] Urine Protein Urine Glucose (UA) Urine Ketones Urine Occult Blood Urine Nitrate Urine Bilirubin Urine Urobilinogen Ur Leukocyte Esterase Ur Culture Indicated? History and Physical pertinent to Admission: Course of Hospitalization: This very nice 53-year-old female past medical history significant for schizophrenia, muscle spasms called Augustine spasms. Also has a history of hypertension for which she has taken the benazepril 40 twice a day and chlorthalidone. She also takes to muscle relaxants and day and Klonopin 2 mg twice a day. I believe the combination of possible dehydration the benazepril with the chlorthalidone gave the patient hypotension which subsequently resulted in acute kidney injury as well. Plus both of the muscle relaxants participated in her low blood pressure. I have held her medications she was rehydrated with lactated Ringer's her electrolytes were re-balanced she was given magnesium. Also ultrasound of her kidneys were done which showed the cyst and recommendation is to be repeated in 6 months. At this point her blood pressure stable 121 129/80 she will follow-up with her primary care physician. She states that she swells and she was given the diuretic. Most likely the will need cardiac workup with echo as an outpatient patient feels better back to her normal self and is happy to be discharged home discussed with nursing and patient. Also ultrasound of her thyroid was ordered but not done most likely will get this as an outpatient to follow with Dr. Peterson next week On the date of discharge, the patient was examined: Gen.: No acute distress, alert, nontoxic Heart: Regular rate and rhythm, no murmurs, clicks, gallops, or rubs Lungs: Clear to auscultation bilaterally, breathing is nonlabored Abdomen/GI: Normal tones on auscultation, soft, nontender, nondistended Musculoskeletal/extremities: No clubbing, cyanosis, or edema Vitals reviewed and are listed below Vital Signs (24 hrs) 05/10/19 16:44 05/10/19 17:47 05/10/19 20:44 Temperature 96.9 F 97.8 F Pulse Rate 99 Pulse Rate [Apical] Pulse Rate [Lying] 102 H Pulse Rate [Pulse Oximeter] 102 H Pulse Rate [Sitting] 104 H Pulse Rate [Standing] 112 H Pulse Rate [Telemetry] Respiratory Rate 20 18 Blood Pressure 117/78 Blood Pressure [Left Arm] 84/54 Blood Pressure [Lying] 85/56 Blood Pressure [Right Arm] Blood Pressure [Sitting] 97/59 Blood Pressure [Standing] 88/57 Pulse Ox 93 96 05/10/19 20:54 05/10/19 21:00 05/10/19 21:35 Temperature 97.7 F Pulse Rate 91 Pulse Rate [Apical] Pulse Rate [Lying] Pulse Rate [Pulse Oximeter] 94 Pulse Rate [Sitting] Pulse Rate [Standing] Pulse Rate [Telemetry] Respiratory Rate 18 Blood Pressure Blood Pressure [Left Arm] Blood Pressure [Lying] Blood Pressure [Right Arm] 112/74 Blood Pressure [Sitting] Blood Pressure [Standing] Pulse Ox 94 92 05/10/19 22:00 05/10/19 23:00 05/10/19 23:09 Temperature Pulse Rate 90 Pulse Rate [Apical] Pulse Rate [Lying] Pulse Rate [Pulse Oximeter] 96 89 Pulse Rate [Sitting] Pulse Rate [Standing] Pulse Rate [Telemetry] Respiratory Rate 18 14 Blood Pressure Blood Pressure [Left Arm] Blood Pressure [Lying] Blood Pressure [Right Arm] 119/79 119/76 Blood Pressure [Sitting] Blood Pressure [Standing] Pulse Ox 96 97 05/11/19 00:00 05/11/19 01:00 05/11/19 02:00 Temperature 97.7 F Pulse Rate Pulse Rate [Apical] Pulse Rate [Lying] Pulse Rate [Pulse Oximeter] 85 84 85 Pulse Rate [Sitting] Pulse Rate [Standing] Pulse Rate [Telemetry] Respiratory Rate 20 14 14 Blood Pressure Blood Pressure [Left Arm] Blood Pressure [Lying] Blood Pressure [Right Arm] 120/80 123/76 122/79 Blood Pressure [Sitting] Blood Pressure [Standing] Pulse Ox 96 95 95 05/11/19 03:00 05/11/19 04:00 05/11/19 04:03 Temperature Pulse Rate 82 Pulse Rate [Apical] Pulse Rate [Lying] Pulse Rate [Pulse Oximeter] 80 85 85 Pulse Rate [Sitting] Pulse Rate [Standing] Pulse Rate [Telemetry] Respiratory Rate 14 16 16 Blood Pressure Blood Pressure [Left Arm] Blood Pressure [Lying] Blood Pressure [Right Arm] 122/80 124/80 Blood Pressure [Sitting] Blood Pressure [Standing] Pulse Ox 96 94 05/11/19 05:00 05/11/19 06:00 05/11/19 06:42 Temperature Pulse Rate Pulse Rate [Apical] 82 Pulse Rate [Lying] Pulse Rate [Pulse Oximeter] 85 84 Pulse Rate [Sitting] Pulse Rate [Standing] Pulse Rate [Telemetry] Respiratory Rate 14 12 14 Blood Pressure Blood Pressure [Left Arm] Blood Pressure [Lying] Blood Pressure [Right Arm] 138/97 127/83 Blood Pressure [Sitting] Blood Pressure [Standing] Pulse Ox 95 95 05/11/19 07:00 Temperature Pulse Rate 84 Pulse Rate [Apical] Pulse Rate [Lying] Pulse Rate [Pulse Oximeter] Pulse Rate [Sitting] Pulse Rate [Standing] Pulse Rate [Telemetry] 86 Respiratory Rate 17 Blood Pressure Blood Pressure [Left Arm] Blood Pressure [Lying] Blood Pressure [Right Arm] 129/91 Blood Pressure [Sitting] Blood Pressure [Standing] Pulse Ox 94 Assessment and Plan: 1. As per discharge assessments above 2. Disposition: Home 3. Condition on discharge, stable and improved. 4. Diet: regular diet 5. Activities: resume normal activities 6. Follow-Up: 1. PCP 2. 7. Medications at the Time of Discharge: Home Medications Medication Instructions Recorded Confirmed Clonazepam [Klonopin] 2 mg PO DAILY 06/27/15 05/10/19 venlafaxine ER 150 mg 150 mg PO ONCE 11/16/17 05/10/19 capsule,extended release 24 hr baclofen 10 mg tablet 20 mg PO QHS tab 02/08/18 05/10/19 cetirizine 10 mg tablet 10 mg PO QDAY 09/21/18 05/10/19 multivitamin-ferrous 1 tab PO QAM 09/21/18 05/10/19 fumarate-folic acid 18 mg-400 mcg tablet vitamin B complex tablet 1 tab PO QDAY 09/21/18 05/10/19 lurasidone 40 mg tablet 40 mg PO QDAY #30 tab 09/28/18 05/10/19 cholecalciferol (vitamin D3) 1,000 1,000 unit PO QDAY 12/21/18 05/10/19 unit capsule lactobacillus combination no.9 4 4,000 mmu cells PO QDAY 12/21/18 05/10/19 billion cell capsule cyclobenzaprine 10 mg tablet 10 mg PO TID PRN #30 tab 02/01/19 05/10/19 pantoprazole 20 mg tablet,delayed 20 mg PO BID #180 tab 02/26/19 05/10/19 release metformin ER 1,000 mg 1,000 mg PO BID #180 tab 02/28/19 05/10/19 tablet,extended release 24hr blood sugar diagnostic strips See Dose Instructions .ROUTE 03/26/19 04/17/19 .MEDSUPPLY #25 ea mirabegron ER 50 mg 50 mg PO QDAY 04/17/19 05/10/19 tablet,extended release 24 hr tamsulosin 0.4 mg capsule 0.4 mg PO QDAY 04/17/19 05/10/19 Dicyclomine HCl [Bentyl] 1 tab PO PRN PRN 05/10/19 05/10/19 8. Time, care, counseling and coordination of care for this discharge is greater than 30 minutes. Exam - Vitals Vital Signs: Vital Signs Temperature 97.7 F Temperature Source Oral Pulse Rate [Telemetry] 86 Pulse Rate [Apical] 82 Pulse Rate [Pulse Oximeter] 84 Pulse Rate [Standing] 112 Pulse Rate [Sitting] 104 Pulse Rate [Lying] 102 Pulse Rate 84 Respiratory Rate 17 Blood Pressure [Standing] 88/57 Blood Pressure [Sitting] 97/59 Blood Pressure [Lying] 85/56 Blood Pressure [Right Arm] 129/91 Blood Pressure [Left Arm] 84/54 Blood Pressure 117/78 Pulse Ox 94 Oxygen Flow Rate 1 Oxygen Delivery Method Nasal Cannula Height 5 ft 4 in Weight 206 lb 12.8 oz Patient Problems - Patient Problem List (1) DUSTIN (acute kidney injury) Current Visit: Yes Status: Acute Code(s): N17.9 - Acute kidney failure, unspecified Category: Medical (2) Hypertension Current Visit: No Status: Chronic Code(s): I10 - Essential (primary) hypertension Category: Medical
[2019-05-11] MEDS ORDERED: HEPARIN 5000 UNIT/1 ML SUBCUT SCH (13:00)
[2019-05-11] MEDS ORDERED: BACLOFEN 20 MG TABLET PO SCH (21:00)
[2019-05-12] MEDS ORDERED: PANTOPRAZOLE IV 40 MG VIAL IVP SCH (07:00)
[2019-05-12] MEDS ORDERED: ClonazePAM Tab 1 MG TABLET PO SCH (09:00)
== END 2019-05-11 10:45 | disposition home or self-care (01) | DRG 392 ==
LOC: ER 16:44 → ICU 20:43 → MED/SURG 05-11 06:53
PROVIDERS: ADMIT Internal Medicine; ATTEND Internal Medicine